=== PATIENT | male | born 1995 | race Hispanic/Latino ===

== ENCOUNTER 2020-05-08 17:43 | Inpatient (IN) | payer MEDICAID, OTHER ==
[~2020-05-08 17:43] MED LIST: Calcium Chloride 1 GM/10 ML Abboject SYRINGE ONE; Iopamidol-370 76% 500 ML 1 ML ONE; Magnesium Sulfate 2 GM in Sodium Chloride 0.9% 100 ML IVPB SCH; Rocuronium Bromide 10 MG/ML (10ML VIAL) ONE; Succinylcholine 200 MG/10 ml SYRINGE FS ONE
[2020-05-08] MEDS ORDERED: Fentanyl 100 MCG/2 ML VIAL ONE ×3 (17:58→20:36)
[2020-05-08 18:02] LABS: Hemoglobin 13.2 g/dL (14.0-18.0); Mean Corpuscular HGB CONC 32.8 g/dL (32.0-36.0); Mean Corpuscular Hemoglobin 32.3 pg (27.0-31.0); Mean Corpuscular Volume 98.7 fL (78.0-98.0); Mean Platelet Volume 8.2 fL (7.4-10.4); Platelet Count 279 thou/uL (130-400); RBC Distribution Width 12.4 % (11.5-14.5); Red Blood Cell (RBC) Count 4.09 mill/uL (4.70-6.10); White Blood Cell (WBC) Count 11.5 thou/uL (4.8-10.8)
[2020-05-08 18:06] LABS: INR-International Normal Ratio 1.1; Prothrombin Time 14.9 sec (12.0-14.7)
[2020-05-08 18:07] LABS: PTT 38.6 sec (22.9-36.1)
[2020-05-08 18:16] LABS: Band 2 % (5-11); Eosinophils 4 % (0-10); Lymphocytes 46 % (21-51); MDiff Complete? YES; Monocytes 2 % (0-10); Neutrophil 37 % (42-75); Platelet Morphology Comment Appears Adequate; RBC Morphology Normal; Reactive Lymphocytes 6 % (0-10)
[2020-05-08 18:18] LABS: ALT (SGPT) 414 U/L (8-55); AST (SGOT) 503 U/L (5-34); Alkaline Phosphatase 99 U/L (40-110); Anion Gap 20 mmol/L (10-20); BUN (Urea Nitrogen) 16 mg/dL (8.9-20.6); Bilirubin, Total 0.3 mg/dL (0.2-1.2); Calc. Creatinine Clearance 0 mL/min (70-130); Calcium 8.9 mg/dL (7.8-10.44); Carbon Dioxide 18 mmol/L (22-29); Chloride 106 mmol/L (98-107); Estimated GFR-MDRD 66; Globulin 3.2 g/dL (2.4-3.5); Glucose 188 mg/dL (70-105); Potassium 4.6 mmol/L (3.5-5.1); Protein, Total 7.2 g/dL (6.0-8.3); Sodium 139 mmol/L (136-145)
[2020-05-08] MEDS ORDERED: Midazolam HCl 2 mg/2 ml Vial ONE ×2 (18:30→20:36)
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
[2020-05-08] MEDS ORDERED: Tranexamic Acid 1,000 MG in Sodium Chloride 0.9% 250 ML 250 ML IVPB ONE (19:15)
[2020-05-08] MEDS ORDERED: Propofol 1,000 MG/100 ML VIAL IV ONE (19:16)
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
[2020-05-08] MEDS ORDERED: Neomycin-Polymyxin 1 ML AMP ONE ×2 (19:28→20:21)
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
[2020-05-08 19:39] LABS: Bilirubin Negative (Negative); Blood, Urine 3+ (Negative); Clarity Turbid (Clear); Glucose, Urine (Dipstick) Normal (Negative); Ketone, Urine Negative (Negative); Leukocyte Negative Leu/uL (Negative); Nitrite Negative (Negative); Protein, Urine (Dipstick) 50 mg/dL (Neg-Trace); RBC/HPF Greater than 50 HPF (0-3); Specific Gravity, Urine 1.035 (1.002-1.036); Squamous Epithelial None Seen HPF (0-3); Urobilinogen Normal mg/dL (Less than 2); pH, Urine 6.5 (5.0-9.0)
[2020-05-08 19:42] LABS: Bacteria/HPF None Seen HPF (None Seen)
[2020-05-08] MEDS ORDERED: Fosphenytoin Sodium 1,200 MG in Sodium Chloride 0.9% 50 ML IVPB ONE (19:45)
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
[2020-05-08] MEDS ORDERED: Ketamine 50 MG/ML (10ML VIAL) ONE (19:56)
[2020-05-08] MEDS ORDERED: Boostrix 0.5 ML (Tdap) VIAL ONE (19:59)
[2020-05-08 20:01] LABS: Amphetamine Not Detected (NotDetected); Barbiturates Screen Not Detected (NotDetected); Benzodiazepine Screen Not Detected (NotDetected); Cocaine Metabolite Screen Detected (NotDetected); Medtox Control Line Valid? VALID (VALID); Medtox Reader # READER 1; Methadone Not Detected (NotDetected); Methamphetamine Not Detected (NotDetected); Opiate Screen Not Detected (NotDetected); Oxycodone Screen Not Detected (NotDetected); Phencyclidine (PCP) Not Detected (NotDetected); THC/Cannabinoid Screen Detected (NotDetected); Tricyclic Screen Not Detected (NotDetected)
[2020-05-08] MEDS ORDERED: PHENYLEPHRINE-NS 100 MCG/ML 10 ML SYRINGE ONE (20:42)
[2020-05-08] MEDS ORDERED: Dextrose 5% in Water 1,000 ML IV PRN (20:43)
[2020-05-08] MEDS ORDERED: hydrALAZINE 20 MG/ML VIAL SLOW IVP PRN (20:43)
[2020-05-08] MEDS ORDERED: Dextrose 50% Abboject 50 ML SYRINGE SLOW IVP PRN (20:43)
[2020-05-08] MEDS ORDERED: Ondansetron PF 4 MG/2 ML Vial IVP PRN (20:43)
[2020-05-08] MEDS ORDERED: Ventilator Sedation Protocol 1 EACH FS ONE (20:49)
[2020-05-08] MEDS ORDERED: Fentanyl BOLUS 250 ML IVPB PRN (21:00)
[2020-05-08] MEDS ORDERED: DISCONTINUE PREVIOUS NARCOTIC PAIN MEDICATIONS AND BENZODIAZEPINES FS SCH (21:00)
[2020-05-08] MEDS ORDERED: Morphine 2 MG/ML VIAL SLOW IVP PRN (21:00)
[2020-05-08] MEDS ORDERED: Propofol BOLUS 1,000 MG/100 ML VIAL IV PRN (21:00)
[2020-05-08] MEDS ORDERED: Lorazepam 2 MG/ML VIAL SLOW IVP PRN (21:00)
[2020-05-08] MEDS: Sodium Chloride 0.9% 1,000 ML IV SCH (21:43)
[2020-05-08] MEDS: Famotidine/PF 20 mg/2ml Vial SLOW IVP SCH (21:43)
[2020-05-08 22:01] LABS: Actual Bicarbonate (HCO3a) 19.7 mEq/L (22-28); Base Excess (BEa) -5.5 mEq/L (-2.0 to +3.0); CO2 Tension 37.2 mmHg (35.0-45.0); Calcium, Ionized (arterial) 1.12 mmol/L (1.12-1.30); Carboxyhemoglobin (COHb) 0.3 gm% (0.0-3.0); Hemoglobin (Hb) 10.6 g/dL (14.0-18.0); O2 Tension (PaO2), arterial 109.7 mmHg (80.0-100.0); Potassium - ABG Lab 3.24 mmol/L (3.70-5.30); pH, Arterial 7.34 (7.35-7.45)
[2020-05-08 22:02] LABS: Puncture Site ART LINE
[2020-05-08 22:13] LABS: CK (CPK) 1048 U/L (30-200); Magnesium 1.8 mg/dL (1.6-2.6); Phosphorus 4.2 mg/dL (2.3-4.7)
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
[2020-05-08] MEDS ORDERED: Magnesium Sulfate 2 GM in Sodium Chloride 0.9% 100 ML IVPB SCH (23:31)
[2020-05-08] MEDS ORDERED: Potassium Chloride 40 MEQ in Sodium Chloride 0.9% 250 ML 250 ML IVPB SCH (23:45)
[2020-05-08] MEDS ORDERED: Potassium Chloride 40 MEQ, Magnesium Sulfate 2 GM in Sodium Chloride 0.9% 250 ML 250 ML IVPB SCH (23:45)
[2020-05-09] MEDS: Acetaminophen 325 MG/10.15 ML UDCUP PO SCH ×4 (00:13→18:15)
[2020-05-09] MEDS ORDERED: Sodium Bicarb 50 MEQ/50 ML Abboject 8.4% SYRINGE IVP SCH (00:30)
[2020-05-09] MEDS: Propofol 1,000 MG/100 ML VIAL IV PRN ×3 (03:17→21:35)
[2020-05-09 05:38] LABS: Anion Gap 15 mmol/L (10-20); BUN (Urea Nitrogen) 14 mg/dL (8.9-20.6); Calc. Creatinine Clearance 148 mL/min (70-130); Calcium 7.6 mg/dL (7.8-10.44); Carbon Dioxide 22 mmol/L (22-29); Chloride 116 mmol/L (98-107); Estimated GFR-MDRD Greater than 90; Glucose 165 mg/dL (70-105); Lactic Acid 5.1 mmol/L (0.5-2.2); Magnesium 2.6 mg/dL (1.6-2.6); Potassium 3.9 mmol/L (3.5-5.1); Sodium 149 mmol/L (136-145)
[2020-05-09] MEDS: Sodium Chloride 0.9% 1,000 ML IV SCH (05:43)
[2020-05-09 05:50] LABS: Band 38 % (5-11); Hemoglobin 9.4 g/dL (14.0-18.0); Lymphocytes 3 % (21-51); MDiff Complete? YES; Mean Corpuscular Hemoglobin 32.1 pg (27.0-31.0); Mean Corpuscular Volume 94.5 fL (78.0-98.0); Mean Platelet Volume 8.7 fL (7.4-10.4); Monocytes 10 % (0-10); Neutrophil 49 % (42-75); Platelet Count 157 thou/uL (130-400); Platelet Morphology Comment Appears Adequate; RBC Distribution Width 14.7 % (11.5-14.5); Red Blood Cell (RBC) Count 2.94 mill/uL (4.70-6.10); White Blood Cell (WBC) Count 15.9 thou/uL (4.8-10.8)
[2020-05-09 05:56] LABS: CK (CPK) 2421 U/L (30-200); Phosphorus 2.4 mg/dL (2.3-4.7)
[2020-05-09] MEDS ORDERED: Lactated Ringer's 1,000 ML IV SCH ×2 (06:00→21:30)
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
[2020-05-09] MEDS: fentaNYL Citrate/PF 2,000 MCG in Sodium Chloride 0.9% 60 ML IV SCH (06:06)
[2020-05-09] MEDS: Lactated Ringer's 1,000 ML IV SCH ×3 (06:18→21:16)
[2020-05-09] MEDS ORDERED: Potassium Phosphate 15 MMOL in Sodium Chloride 0.9% 250 ML 250 ML IVPB SCH (06:30)
[2020-05-09 06:48] LABS: Base Excess (BEa) -4.1 mEq/L (-2.0 to +3.0); CO2 Tension 32.3 mmHg (35.0-45.0); Calcium, Ionized (arterial) 1.11 mmol/L (1.12-1.30); Carboxyhemoglobin (COHb) 0.3 gm% (0.0-3.0); Hemoglobin (Hb) 8.9 g/dL (14.0-18.0); O2 Tension (PaO2), arterial 107.6 mmHg (80.0-100.0); Potassium - ABG Lab 3.57 mmol/L (3.70-5.30); pH, Arterial 7.41 (7.35-7.45)
[2020-05-09 06:49] LABS: Puncture Site LINE
[2020-05-09 06:50] LABS: ALV-art Gradient 101.575 mmHg (0-20)
[2020-05-09] MEDS ORDERED: Calcium Chloride 1 GM/10 ML Abboject SYRINGE IVP SCH (07:15)
[2020-05-09] MEDS ORDERED: Calcium Chloride 13.6 MEQ in Sodium Chloride 0.9% 100 ML IVPB SCH (07:45)
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
[2020-05-09] MEDS: Famotidine/PF 20 mg/2ml Vial SLOW IVP SCH ×2 (08:55→21:17)
[2020-05-09 10:18] LABS: Lactic Acid 3.8 mmol/L (0.5-2.2)
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
[2020-05-09] MEDS ORDERED: Rocuronium Bromide 10 MG/ML (10ML VIAL) ONE (11:23)
[2020-05-09] MEDS ORDERED: Ondansetron PF 4 MG/2 ML Vial ONE (11:23)
[2020-05-09] MEDS ORDERED: Vecuronium 10 MG VIAL ONE (11:23)
[2020-05-09] MEDS ORDERED: Calcium Chloride 1 GM/10 ML Abboject SYRINGE ONE (11:23)
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
[2020-05-09] MEDS ORDERED: Fentanyl 100 MCG/2 ML VIAL ONE (14:22)
[2020-05-09 19:59] LABS: Hemoglobin 9.9 g/dL (14.0-18.0)
[2020-05-09] MEDS ORDERED: CEFAZOLIN 2 GM in Premix Bag 1 BAG IVPB SCH (20:20)
--- NOTE | 2020-05-09 20:20 | RAD ---
EXAM: TWO VIEWS OF THE RIGHT FEMUR: 05/09/20 HISTORY: Femur fracture. FINDINGS/IMPRESSION: Multiple limited intraoperative fluoroscopic views of the right femur were submitted for interpretati on. There is an intramedullary jluis spanning the intertrochanteric fracture of the proximal femur. The re is a separate retrograde intramedullary jluis spanning the comminuted segmental fracture of the mid portion of the femur. There is still slight foreshortening of the fracture with fracture fragments in the soft tissues slightly displaced from the fracture. POS: EAA
--- NOTE | 2020-05-09 20:22 | RAD ---
TWO VIEWS OF THE RIGHT TIBIA/FIBULA: 05/09/20 COMPARISON: 05/08/20 HISTORY: Right tibia fracture status post ORIF. FINDINGS/IMPRESSION: Limited intraoperative fluoroscopic views of the right tibia/fibula were submitted for interpretation . The patient is status post antegrade intramedullary jluis fixation of the fracture of the mid portion of the tibia. No perihardware lucency is seen. The fracture is well aligned. POS: EAA
[2020-05-09 20:26] LABS: Lactic Acid 4.1 mmol/L (0.5-2.2)
[2020-05-09 20:30] LABS: Anion Gap 13 mmol/L (10-20); BUN (Urea Nitrogen) 12 mg/dL (8.9-20.6); CK (CPK) 3316 U/L (30-200); Calc. Creatinine Clearance 162 mL/min (70-130); Calcium 7.9 mg/dL (7.8-10.44); Carbon Dioxide 23 mmol/L (22-29); Chloride 120 mmol/L (98-107); Estimated GFR-MDRD Greater than 90; Glucose 193 mg/dL (70-105); Phosphorus 5.5 mg/dL (2.3-4.7); Potassium 3.8 mmol/L (3.5-5.1); Sodium 152 mmol/L (136-145)
[2020-05-09] MEDS ORDERED: Labetalol HCl 100 MG/20 ML VIAL SLOW IVP PRN (21:35)
[2020-05-09 22:48] LABS: Base Excess (BEa) -1.8 mEq/L (-2.0 to +3.0); CO2 Tension 38.9 mmHg (35.0-45.0); Carboxyhemoglobin (COHb) 0.3 gm% (0.0-3.0); Hemoglobin (Hb) 8.6 g/dL (14.0-18.0); O2 Tension (PaO2), arterial 144.7 mmHg (80.0-100.0); Potassium - ABG Lab 3.69 mmol/L (3.70-5.30); pH, Arterial 7.39 (7.35-7.45)
[2020-05-09 22:49] LABS: ALV-art Gradient 56.225 mmHg (0-20); Puncture Site A-LINE
[2020-05-09] MEDS ORDERED: Lactated Ringer's 500 ML IV SCH (23:15)
[2020-05-09] MEDS ORDERED: Calcium Gluc 4.6 MEQ/10 ML (100 MG/ML) SLOW IVP SCH (23:15)
[2020-05-10] MEDS: Acetaminophen 325 MG/10.15 ML UDCUP PO SCH ×4 (00:52→17:14)
--- NOTE | 2020-05-10 00:53 | PRG ---
DATE OF SERVICE: 05/09/2020 SUBJECTIVE: The patient was seen during evening rounds in the critical care unit. The patient is returning from the OR after having his right hip, right tibia and right femur repaired. The patient did receive 4 units of packed red blood cells and 1 unit of fresh frozen plasma in the OR. The patient's estimated blood loss was approximately 600 mL. The patient was also given a half amp of calcium in the OR. It was reported that he had normal vital signs and only had 1 push dose of Jay. The patient also received 1 L of LR while in the OR. The patient's urinary output briefly dropped postop. LR 1 L bolus was given. Postop labs revealed elevated lactate level of 4.1. Sodium elevated at 152 and CK increased to 3316. The patient's ionized calcium also was low at 1.10. The patient is on full ventilatory support. The patient is currently on fentanyl 150 mcg an hour and propofol 25 mcg/kg an hour. PHYSICAL EXAMINATION: VITAL SIGNS: Stable, afebrile. RESPIRATORY: Bilateral breath sounds clear. CARDIAC: Regular rate, tachycardic. ABDOMEN: Soft, nondistended. EXTREMITIES: No focal deficits, distal pulses 2+ in all extremities. PLAN: Continue to resuscitate. We will give another LR bolus 500 mL and monitor urinary output with a goal of 40 mL an hour. We will replace calcium. Repeat labs in the morning. We will also do a free water flush for hypernatremia. Ensure the patient's systolic blood pressure is above 100, but less than 160 and a MAP goal of 70. End-tidal CO2 goal of 35-40. Job ID: [id number]
[2020-05-10] MEDS: fentaNYL Citrate/PF 2,000 MCG in Sodium Chloride 0.9% 60 ML IV SCH ×2 (01:11→13:33)
[2020-05-10] MEDS: Lactated Ringer's 1,000 ML IV SCH ×3 (03:12→15:18)
[2020-05-10 04:38] LABS: INR-International Normal Ratio 1.4; Prothrombin Time 17.1 sec (12.0-14.7)
[2020-05-10 04:39] LABS: PTT 35.2 sec (22.9-36.1)
[2020-05-10 04:40] LABS: Lactic Acid 3.4 mmol/L (0.5-2.2)
[2020-05-10 04:46] LABS: Anion Gap 13 mmol/L (10-20); BUN (Urea Nitrogen) 13 mg/dL (8.9-20.6); CK (CPK) 3211 U/L (30-200); Calc. Creatinine Clearance 162 mL/min (70-130); Calcium 7.9 mg/dL (7.8-10.44); Carbon Dioxide 22 mmol/L (22-29); Chloride 117 mmol/L (98-107); Estimated GFR-MDRD Greater than 90; Glucose 159 mg/dL (70-105); Magnesium 1.9 mg/dL (1.6-2.6); Phosphorus 2.4 mg/dL (2.3-4.7); Potassium 3.5 mmol/L (3.5-5.1); Sodium 148 mmol/L (136-145)
[2020-05-10] MEDS: Propofol 1,000 MG/100 ML VIAL IV PRN ×2 (05:11→18:35)
[2020-05-10 07:09] LABS: #Lymphocytes 1.7 thou/uL (1.20-3.40); #Monocytes 1.3 thou/uL (0.11-0.59); #Neutrophils 9.2 thou/uL (1.40-6.50); %Basophils 0.2 % (0.0-1.0); %Lymphocytes 14.2 % (21.0-51.0); %Monocytes 10.2 % (0.0-10.0); %Neutrophils 75.3 % (42.0-75.0); Anisocytosis SLIGHT = 6-15 cells (100X) (0-5/hpf); Hemoglobin 7.9 g/dL (14.0-18.0); MDiff Complete? YES; Mean Corpuscular HGB CONC 33.8 g/dL (32.0-36.0); Mean Corpuscular Hemoglobin 30.3 pg (27.0-31.0); Mean Corpuscular Volume 89.6 fL (78.0-98.0); Mean Platelet Volume 9.2 fL (7.4-10.4); Platelet Count 82 thou/uL (130-400); Platelet Morphology Comment Appears Decreased; RBC Distribution Width 15.3 % (11.5-14.5); Red Blood Cell (RBC) Count 2.59 mill/uL (4.70-6.10); White Blood Cell (WBC) Count 12.2 thou/uL (4.8-10.8)
[2020-05-10] MEDS ORDERED: Potassium Phosphate 15 MMOL in Sodium Chloride 0.9% 250 ML 250 ML IVPB SCH (08:00)
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
[2020-05-10 08:39] LABS: Base Excess (BEa) 0.8 mEq/L (-2.0 to +3.0); CO2 Tension 37.9 mmHg (35.0-45.0); Calcium, Ionized (arterial) 1.09 mmol/L (1.12-1.30); Carboxyhemoglobin (COHb) 0.3 gm% (0.0-3.0); Hemoglobin (Hb) 7.5 g/dL (14.0-18.0); O2 Tension (PaO2), arterial 90.3 mmHg (80.0-100.0); Potassium - ABG Lab 3.43 mmol/L (3.70-5.30); pH, Arterial 7.44 (7.35-7.45)
[2020-05-10 08:40] LABS: Puncture Site ALINE
[2020-05-10 08:41] LABS: ALV-art Gradient 111.875 mmHg (0-20)
[2020-05-10] MEDS ORDERED: Calcium Chloride 13.6 MEQ in Sodium Chloride 0.9% 100 ML IVPB SCH (08:45)
[2020-05-10] MEDS: Famotidine/PF 20 mg/2ml Vial SLOW IVP SCH ×2 (08:46→20:46)
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
--- NOTE | 2020-05-10 11:24 | PRG ---
DATE OF SERVICE: 05/10/2020 Mr. Anna Ferro this morning with the sedation turned off, attempts to open his eyes, he raises up off the bed very briskly and with excellent strength in bilateral upper and left lower extremities. He does not follow commands, but is quite purposeful. I have removed his cervical collar given his negative cervical, thoracic, and lumbar imaging. At this point, we will continue to follow along. There is no need for an ICP monitor placement given how well the patient is doing from a neurologic standpoint. This is a 25-minute subsequent visit note and 25 minutes were spent in reviewing the imaging record, evaluation, examination of the patient, formulation of plan, greater than 50% time was spent in counseling. Job ID: [id number]
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
[2020-05-10] MEDS ORDERED: Iopamidol 370 76% 50 ML VIAL FS ONE (14:52)
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
[2020-05-11] MEDS: Lactated Ringer's 1,000 ML IV SCH ×5 (00:11→20:21)
[2020-05-11] MEDS: Propofol 1,000 MG/100 ML VIAL IV PRN ×2 (00:12→18:18)
[2020-05-11] MEDS: Acetaminophen 325 MG/10.15 ML UDCUP PO SCH ×4 (00:12→14:43)
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
[2020-05-11 03:20] LABS: #Eosinphils 0.1 thou/uL (0.0-0.7); #Lymphocytes 1.4 thou/uL (1.20-3.40); #Monocytes 0.6 thou/uL (0.11-0.59); #Neutrophils 5.1 thou/uL (1.40-6.50); %Basophils 0.4 % (0.0-1.0); %Lymphocytes 19.4 % (21.0-51.0); %Monocytes 8.7 % (0.0-10.0); %Neutrophils 70.5 % (42.0-75.0); Hemoglobin 6.4 g/dL (14.0-18.0); Mean Corpuscular HGB CONC 34.7 g/dL (32.0-36.0); Mean Corpuscular Hemoglobin 31.3 pg (27.0-31.0); Mean Corpuscular Volume 90.3 fL (78.0-98.0); Mean Platelet Volume 9.3 fL (7.4-10.4); Platelet Count 74 thou/uL (130-400); RBC Distribution Width 15.2 % (11.5-14.5); Red Blood Cell (RBC) Count 2.04 mill/uL (4.70-6.10); White Blood Cell (WBC) Count 7.2 thou/uL (4.8-10.8)
[2020-05-11 03:39] LABS: Lactic Acid 1.9 mmol/L (0.5-2.2)
[2020-05-11 03:56] LABS: Anion Gap 9 mmol/L (10-20); BUN (Urea Nitrogen) 13 mg/dL (8.9-20.6); CK (CPK) 3704 U/L (30-200); Calc. Creatinine Clearance 187 mL/min (70-130); Calcium 7.6 mg/dL (7.8-10.44); Carbon Dioxide 26 mmol/L (22-29); Chloride 116 mmol/L (98-107); Estimated GFR-MDRD Greater than 90; Glucose 159 mg/dL (70-105); Phosphorus 1.7 mg/dL (2.3-4.7); Potassium 2.9 mmol/L (3.5-5.1); Sodium 148 mmol/L (136-145)
[2020-05-11] MEDS ORDERED: Potassium Phosphate 30 MMOL in Sodium Chloride 0.9% 250 ML 250 ML IVPB SCH ×2 (05:00→16:00)
[2020-05-11 07:40] LABS: Actual Bicarbonate (HCO3a) 26.5 mEq/L (22-28); Base Excess (BEa) 2.6 mEq/L (-2.0 to +3.0); CO2 Tension 37.3 mmHg (35.0-45.0); Carboxyhemoglobin (COHb) 0.3 gm% (0.0-3.0); Hemoglobin (Hb) 6.1 g/dL (14.0-18.0); O2 Tension (PaO2), arterial 149.3 mmHg (80.0-100.0); Potassium - ABG Lab 3.31 mmol/L (3.70-5.30); pH, Arterial 7.47 (7.35-7.45)
[2020-05-11 07:41] LABS: ALV-art Gradient 53.625 mmHg (0-20); Puncture Site RB
[2020-05-11] MEDS ORDERED: Calcium Chloride 1 GM/10 ML Abboject SYRINGE IVP SCH (08:15)
[2020-05-11] MEDS: Famotidine/PF 20 mg/2ml Vial SLOW IVP SCH ×2 (08:34→20:22)
[2020-05-11] MEDS: Polyethylene Glycol 3350 17 GM Packet PO SCH (08:37)
[2020-05-11] MEDS: Senokot S 8.6-50 MG TAB PO SCH ×2 (08:37→20:22)
[2020-05-11] MEDS ORDERED: AFRIN NASAL MIST 15 ML BOT NS PRN (10:09)
[2020-05-11] MEDS ORDERED: Haloperidol Lactate 5 MG/ML VIAL SLOW IVP SCH ×2 (10:15)
[2020-05-11] MEDS ORDERED: Propofol 1,000 MG/100 ML VIAL IV ONE (10:27)
--- NOTE | 2020-05-11 10:31 | PRG ---
DATE OF SERVICE: 05/11/2020 I saw Mr. Román Ferro on rounds earlier this morning. Nursing did not report any significant events overnight. Among the electronically recorded vital signs, I see a maximum temperature of 99.6 degrees. Blood pressures have ranged in the 100s to 110s. Mr. Anna Ferro has a wrapping on his right leg. He is quite purposeful in his reaction to stimuli and localizes briskly. His sodium this morning is 148. Mr. Anna Ferro is stable on neurological examination. We will continue to follow him. Anticipated extubation will be sometime today, according to the notes that I have reviewed. Unlikely, he will need neurosurgical intervention. Job ID: [id number] [facility]
--- NOTE | 2020-05-11 10:34 | RAD ---
EXAM: XR Chest 1 View Portable PROVIDED CLINICAL HISTORY: Intubated. COMPARISON: 05/10/2021 FINDINGS: Endotracheal tube and nasogastric tube remain in place. Cardiac silhouette is magnified by projection . There is mild pulmonary vascular congestion on this exam compared to prior study. No consolidation or pleural fluid is identified. There is partial visualization of an IVC filter overlyi ng the medial aspect quadrant. No other interval change IMPRESSION: 1. Endotracheal and nasogastric tubes stable in position. 2. Mild pulmonary vascular congestion.
[2020-05-11] MEDS ORDERED: Lidocaine 1% w/Epinephrine 1:100K 20 ML VIAL ONE ×2 (10:41)
[2020-05-11] MEDS ORDERED: Fentanyl 100 MCG/2 ML VIAL ONE ×2 (10:47→10:54)
[2020-05-11] MEDS ORDERED: Acetaminophen/Codeine 30-300mg Tablet PO SCH (11:00)
[2020-05-11] MEDS ORDERED: Fentanyl BOLUS 250 ML IVPB PRN (12:15)
[2020-05-11] MEDS ORDERED: DISCONTINUE PREVIOUS NARCOTIC PAIN MEDICATIONS AND BENZODIAZEPINES FS SCH (12:15)
[2020-05-11] MEDS ORDERED: Lorazepam 2 MG/ML VIAL SLOW IVP PRN (12:15)
[2020-05-11] MEDS ORDERED: Morphine 2 MG/ML VIAL SLOW IVP PRN (12:15)
[2020-05-11] MEDS ORDERED: Propofol BOLUS 1,000 MG/100 ML VIAL IV PRN (12:15)
--- NOTE | 2020-05-11 12:19 | RAD ---
XR Abdomen 1 View/KUB History: Dobbhoff placement Comparison: None. Findings: Weighted feeding tube tip in gastric body. IVC filter tip projects over the mid L1 vertebra l body. Mild gaseous distention of large and small bowel. Impression: Weighted feeding tube tip at the gastric body.
[2020-05-11] MEDS: fentaNYL Citrate/PF 2,000 MCG in Sodium Chloride 0.9% 60 ML IV SCH (12:26)
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
[2020-05-11 14:25] LABS: Hemoglobin 7.2 g/dL (14.0-18.0); Mean Corpuscular HGB CONC 33.9 g/dL (32.0-36.0); Mean Corpuscular Hemoglobin 30.5 pg (27.0-31.0); Mean Corpuscular Volume 90.1 fL (78.0-98.0); Platelet Count 74 thou/uL (130-400); RBC Distribution Width 15.6 % (11.5-14.5); Red Blood Cell (RBC) Count 2.37 mill/uL (4.70-6.10); White Blood Cell (WBC) Count 6.8 thou/uL (4.8-10.8)
[2020-05-11 14:43] LABS: Anion Gap 11 mmol/L (10-20); BUN (Urea Nitrogen) 10 mg/dL (8.9-20.6); Calc. Creatinine Clearance 218 mL/min (70-130); Carbon Dioxide 25 mmol/L (22-29); Chloride 113 mmol/L (98-107); Estimated GFR-MDRD Greater than 90; Glucose 128 mg/dL (70-105); Magnesium 1.9 mg/dL (1.6-2.6); Phosphorus 2.9 mg/dL (2.3-4.7); Potassium 3.2 mmol/L (3.5-5.1); Sodium 146 mmol/L (136-145)
[2020-05-11] MEDS: carBAMazepine 200 MG TAB PO SCH ×2 (14:43→20:22)
[2020-05-11 14:48] LABS: Anisocytosis SLIGHT = 6-15 cells (100X) (0-5/hpf); Band 54 % (5-11); Lymphocytes 19 % (21-51); MDiff Complete? YES; Metamyelocyte 1 % (0-0); Monocytes 5 % (0-10); Myelocyte 1 % (0-0); Neutrophil 19 % (42-75); Nucleated RBC 1 % (0); Platelet Morphology Comment Appears Decreased; Polychromasia MODERATE = 3-4 cells (100X) (0-2/hpf); Reactive Lymphocytes 1 % (0-10)
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
[2020-05-11] MEDS ORDERED: Magnesium 2 GM/50 ML 2 GM in Premix Bag 1 BAG IVPB SCH (15:45)
[2020-05-11] MEDS ORDERED: carBAMazepine 200 MG TAB PO SCH (17:00)
[2020-05-11] MEDS: Acetaminophen 650 MG/20.3 ML UDCUP PO SCH (18:19)
[2020-05-11 22:10] LABS: Hemoglobin 6.7 g/dL (14.0-18.0)
[2020-05-12] MEDS: Lactated Ringer's 1,000 ML IV SCH ×4 (00:12→17:11)
[2020-05-12] MEDS: Acetaminophen 650 MG/20.3 ML UDCUP PO SCH ×4 (00:17→17:11)
[2020-05-12] MEDS: Propofol 1,000 MG/100 ML VIAL IV PRN ×2 (05:33→17:11)
[2020-05-12] MEDS: fentaNYL Citrate/PF 2,000 MCG in Sodium Chloride 0.9% 60 ML IV SCH (05:38)
[2020-05-12 05:52] LABS: Hemoglobin 7.9 g/dL (14.0-18.0); Mean Corpuscular HGB CONC 34.4 g/dL (32.0-36.0); Mean Corpuscular Hemoglobin 30.5 pg (27.0-31.0); Mean Corpuscular Volume 88.7 fL (78.0-98.0); Mean Platelet Volume 9.1 fL (7.4-10.4); Platelet Count 87 thou/uL (130-400); RBC Distribution Width 15.3 % (11.5-14.5); Red Blood Cell (RBC) Count 2.58 mill/uL (4.70-6.10); White Blood Cell (WBC) Count 8.8 thou/uL (4.8-10.8)
[2020-05-12 06:19] LABS: CK (CPK) 4307 U/L (30-200)
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
[2020-05-12 06:26] LABS: Anion Gap 10 mmol/L (10-20); BUN (Urea Nitrogen) 9 mg/dL (8.9-20.6); Calc. Creatinine Clearance 204 mL/min (70-130); Calcium 7.8 mg/dL (7.8-10.44); Carbon Dioxide 26 mmol/L (22-29); Chloride 113 mmol/L (98-107); Estimated GFR-MDRD Greater than 90; Glucose 162 mg/dL (70-105); Magnesium 2.2 mg/dL (1.6-2.6); Phosphorus 3.6 mg/dL (2.3-4.7); Potassium 3.3 mmol/L (3.5-5.1); Sodium 146 mmol/L (136-145)
[2020-05-12 07:35] LABS: Base Excess (BEa) -2.1 mEq/L (-2.0 to +3.0); CO2 Tension 40.4 mmHg (35.0-45.0); Calcium, Ionized (arterial) 1.11 mmol/L (1.12-1.30); Carboxyhemoglobin (COHb) 0.1 gm% (0.0-3.0); Hemoglobin (Hb) 10.4 g/dL (14.0-18.0); Potassium - ABG Lab 3.17 mmol/L (3.70-5.30); pH, Arterial 7.37 (7.35-7.45)
[2020-05-12 07:41] LABS: O2 Tension (PaO2), arterial 57.9 mmHg (80.0-100.0); Puncture Site RR
[2020-05-12] MEDS ORDERED: Lactated Ringer's 1,000 ML IV SCH (07:56)
[2020-05-12] MEDS: Senokot S 8.6-50 MG TAB PO SCH ×2 (08:00→20:43)
[2020-05-12] MEDS: carBAMazepine 200 MG TAB PO SCH ×3 (08:00→20:43)
[2020-05-12] MEDS: Famotidine/PF 20 mg/2ml Vial SLOW IVP SCH ×2 (08:00→20:43)
[2020-05-12] MEDS ORDERED: Potassium Phosphate 30 MMOL in Sodium Chloride 0.9% 250 ML 250 ML IVPB SCH (08:00)
[2020-05-12] MEDS: Polyethylene Glycol 3350 17 GM Packet PO SCH (08:00)
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
--- NOTE | 2020-05-12 08:56 | RAD ---
EXAM: XR Chest 1 View Portable PROVIDED CLINICAL HISTORY: Tracheostomy device placed. COMPARISON: 05/11/2020 FINDINGS: Endotracheal tube has been removed, and tracheostomy device is now noted in place. Nasogastric tube h as been removed in the interim with interval placement of a Dobbhoff feeding tube. Although the Dobbhoff feeding tube is not visualized, most proximal portion of the Dobbhoff feeding tube overlies expected location of the body of the stomach. Cardiac silhouette and pulmonary vasculature are within normal limits. There is prominence of the central pulmonary vasculature. There is accentuation the right hilar structures which is likely due to central pulmonary vascular prominence and accentuation secondary to patient rotation. Atelectasis is present in the right midlung zone. No othe r interval change. IMPRESSION: 1. Interval placement of tracheostomy device. 2. Interval placement of Dobbhoff feeding tube. Tip is not imaged, but the most proximal portion of D obbhoff feeding tube overlies the expected location the body of the stomach. 3. Prominence of the central pulmonary vasculature.
--- NOTE | 2020-05-12 09:33 | PRG ---
DATE OF SERVICE: 05/12/2020 I saw Mr. Anna Ferro in his ICU room this morning. Nurses do not report any events overnight. Temperatures have reached as high as 100.1 degrees Fahrenheit. His neurological examination is improved for me. In spite of sedation running, I can get him to squeeze his hands. He did not follow commands in the lower extremities, but he does move them. Today, sodium is 146. The plan today, according the nursing staff, is for a trial of trach collar. Off sedation, he is quite agitated and begins to sit up and tried to extricate himself from the restraints and move around. It is going to be a challenge to keep him safe while removing ventilatory support and sedation. Thankfully, I think his neurological function is stable to improving (15 minutes). Job ID: [id number]
[2020-05-12] MEDS ORDERED: carBAMazepine 100 mg Chewable Tablet PO SCH (11:30)
[2020-05-12 11:43] LABS: SARS-CoV-2 MS2 Positive; SARS-CoV-2 N Gene Negative; SARS-CoV-2 S Gene Negative; SARS-CoV-2 by NAA Not Detected (NotDetected); SARS-CoV-2 orf1ab Negative
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
--- NOTE | 2020-05-12 23:39 | PRG ---
DATE OF SERVICE: 05/12/2020 SUBJECTIVE: The patient was seen during evening rounds in the critical care unit. The patient is currently sedated and on full mechanical ventilatory support. The patient did receive 1 unit of packed red blood cells earlier this morning. OBJECTIVE: VITAL SIGNS: Stable, afebrile. Urinary output is adequate for patient's age and weight and above 1 mL/kg per hour. PLAN: Continue supportive care and full ventilatory support. Continue maintenance IV fluids. Continue to monitor urinary output. Repeat labs in the morning. Job ID: [id number]
[2020-05-13] MEDS: Lactated Ringer's 1,000 ML IV SCH ×3 (00:38→13:32)
[2020-05-13] MEDS: Acetaminophen 650 MG/20.3 ML UDCUP PO SCH ×4 (00:38→17:59)
[2020-05-13] MEDS: Propofol 1,000 MG/100 ML VIAL IV PRN (01:13)
[2020-05-13] MEDS: fentaNYL Citrate/PF 2,000 MCG in Sodium Chloride 0.9% 60 ML IV SCH (04:50)
[2020-05-13 05:52] LABS: #Eosinphils 0.1 thou/uL (0.0-0.7); #Lymphocytes 1.3 thou/uL (1.20-3.40); %Basophils 0.1 % (0.0-1.0); %Eosinophils 0.9 % (0.0-10.0); %Lymphocytes 11.7 % (21.0-51.0); %Monocytes 8.9 % (0.0-10.0); %Neutrophils 78.4 % (42.0-75.0); Hemoglobin 8.5 g/dL (14.0-18.0); Mean Corpuscular HGB CONC 34.4 g/dL (32.0-36.0); Mean Corpuscular Hemoglobin 31.4 pg (27.0-31.0); Mean Corpuscular Volume 91.1 fL (78.0-98.0); Mean Platelet Volume 8.4 fL (7.4-10.4); Platelet Count 123 thou/uL (130-400); RBC Distribution Width 15.5 % (11.5-14.5); Red Blood Cell (RBC) Count 2.71 mill/uL (4.70-6.10); White Blood Cell (WBC) Count 11.5 thou/uL (4.8-10.8)
[2020-05-13 06:06] LABS: Anion Gap 14 mmol/L (10-20); BUN (Urea Nitrogen) 9 mg/dL (8.9-20.6); Calc. Creatinine Clearance 238 mL/min (70-130); Calcium 7.9 mg/dL (7.8-10.44); Carbon Dioxide 24 mmol/L (22-29); Chloride 108 mmol/L (98-107); Estimated GFR-MDRD Greater than 90; Glucose 158 mg/dL (70-105); Magnesium 2.1 mg/dL (1.6-2.6); Phosphorus 3.2 mg/dL (2.3-4.7); Potassium 3.5 mmol/L (3.5-5.1); Sodium 142 mmol/L (136-145)
[2020-05-13 06:18] LABS: CK (CPK) 4752 U/L (30-200)
[2020-05-13] MEDS ORDERED: Potassium Phosphate 15 MMOL in Sodium Chloride 0.9% 250 ML 250 ML IVPB SCH (07:30)
[2020-05-13] MEDS: carBAMazepine 200 MG TAB PO SCH ×3 (08:24→18:05)
[2020-05-13] MEDS: Senokot S 8.6-50 MG TAB PO SCH ×2 (08:24→21:56)
[2020-05-13] MEDS: Famotidine/PF 20 mg/2ml Vial SLOW IVP SCH ×2 (08:24→21:56)
[2020-05-13] MEDS: Polyethylene Glycol 3350 17 GM Packet PO SCH (08:25)
[2020-05-13] MEDS ORDERED: clonazePAM 1 MG TAB PO SCH (09:30)
[2020-05-13] MEDS: Acetaminophen/Codeine 30-300mg Tablet PO SCH ×2 (12:27→17:59)
[2020-05-13] MEDS ORDERED: Oxymetazoline HCl 0.05% (30 ML BOT) NS PRN (13:30)
[2020-05-13] MEDS: clonazePAM 1 MG TAB PO SCH ×2 (15:46→21:56)
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
[2020-05-14] MEDS: Acetaminophen 650 MG/20.3 ML UDCUP PO SCH ×5 (00:35→23:43)
[2020-05-14] MEDS: carBAMazepine 200 MG TAB PO SCH ×5 (00:36→23:41)
[2020-05-14] MEDS: Acetaminophen/Codeine 30-300mg Tablet PO SCH ×5 (00:36→23:41)
[2020-05-14] MEDS: Lactated Ringer's 1,000 ML IV SCH ×2 (00:38→09:18)
--- NOTE | 2020-05-14 01:10 | PRG ---
DATE OF SERVICE: 05/13/2020 SUBJECTIVE: The patient remains on the critical care unit. The patient has been on trach collar since noon today and tolerating well. The patient continues to have Precedex for pain and sedation, currently at 1 mcg/kg an hour. The patient also has a fentanyl drip at 100 mcg an hour. The patient is currently restrained with soft restraints and mittens as the patient gets agitated and pulls at his trach. The patient was pancultured today as he had a temperature of 101. Urinary output is adequate for patient's age and weight. Tube feeds with high residual. OBJECTIVE: Vital signs are stable. RESP: Even and non labored, clear breath sounds. ABDOMEN: Mildly distended, soft, no peritoneal signs. EXTREMITIES: Moves all extremities. NEURO: GCS E 4, V 1T, M 5. PLAN: Continue to monitor urinary output and serum CPK. Continue trach collar as tolerated. Continue to wean sedatives as tolerated. Continue PT and OT. Speech to evaluate for cognition and swallow. Hold tube feeds for 2 hours due to high residuals. Job ID: [id number] [facility]
[2020-05-14] MEDS: fentaNYL Citrate/PF 2,000 MCG in Sodium Chloride 0.9% 60 ML IV SCH ×2 (01:31→22:07)
[2020-05-14 04:11] LABS: Anion Gap 15 mmol/L (10-20); BUN (Urea Nitrogen) 8 mg/dL (8.9-20.6); Calc. Creatinine Clearance 274 mL/min (70-130); Carbon Dioxide 22 mmol/L (22-29); Chloride 100 mmol/L (98-107); Estimated GFR-MDRD Greater than 90; Glucose 137 mg/dL (70-105); Magnesium 1.9 mg/dL (1.6-2.6); Phosphorus 2.6 mg/dL (2.3-4.7); Potassium 3.5 mmol/L (3.5-5.1); Sodium 133 mmol/L (136-145)
[2020-05-14 04:48] LABS: Band 39 % (5-11); Eosinophils 1 % (0-10); Hemoglobin 9.6 g/dL (14.0-18.0); Lymphocytes 9 % (21-51); MDiff Complete? YES; Mean Corpuscular HGB CONC 32.6 g/dL (32.0-36.0); Mean Corpuscular Hemoglobin 29.8 pg (27.0-31.0); Mean Corpuscular Volume 91.4 fL (78.0-98.0); Mean Platelet Volume 8.4 fL (7.4-10.4); Monocytes 8 % (0-10); Myelocyte 1 % (0-0); Neutrophil 42 % (42-75); Platelet Count 163 thou/uL (130-400); RBC Distribution Width 15.1 % (11.5-14.5); Red Blood Cell (RBC) Count 3.21 mill/uL (4.70-6.10); White Blood Cell (WBC) Count 17.8 thou/uL (4.8-10.8)
--- NOTE | 2020-05-14 07:54 | RAD ---
PORTABLE CHEST: Date: 05/14/2020 HISTORY: Intubation. COMPARISON: 05/12/2020 exam. FINDINGS: Tracheostomy tube and Dobbhoff feeding tube are in satisfactory position. Heart size is enlarged. Pul monary vessels are engorged. Increased parahilar lung markings are slightly more prominent than on th e previous exam. IMPRESSION: 1. Cardiomegaly with some increased pulmonary vascular engorgement. 2. Tracheostomy tube and Dobbhoff feeding tube unchanged in position. POS: OFF
[2020-05-14] MEDS: Famotidine/PF 20 mg/2ml Vial SLOW IVP SCH ×2 (08:56→20:20)
[2020-05-14] MEDS: Polyethylene Glycol 3350 17 GM Packet PO SCH (08:56)
[2020-05-14] MEDS: Senokot S 8.6-50 MG TAB PO SCH ×2 (08:57→20:21)
[2020-05-14] MEDS: Bisacodyl 10 MG SUPP PR SCH (08:57)
[2020-05-14] MEDS: clonazePAM 1 MG TAB PO SCH ×3 (08:58→20:20)
[2020-05-14] MEDS: Sodium Bicarbonate 150 MEQ in Dextrose 5% in Water 850 ML IV SCH ×2 (09:17→20:27)
[2020-05-14] MEDS ORDERED: Propofol 1,000 MG/100 ML VIAL IV ONE (11:03)
[2020-05-14] MEDS ORDERED: Propofol BOLUS 1,000 MG/100 ML VIAL IV PRN (11:30)
[2020-05-14] MEDS ORDERED: Propofol 1,000 MG/100 ML VIAL IV PRN (11:30)
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
--- NOTE | 2020-05-14 16:32 | PRG ---
DATE OF SERVICE: 05/14/2020 SUBJECTIVE: The patient is 6 days into his hospital stay and remains in the critical care unit. He is tolerating his trach collar. He remains on Precedex and fentanyl. He was detected to have a fever of 101.5 degrees Fahrenheit yesterday evening, but has been afebrile since. Preliminary urine and blood cultures have yielded no growth; however, preliminary sputum culture has returned Staphylococcus aureus. He will be started on appropriate antibiotics. His white blood cell count this morning was 17.8. The patient's pupils are 2 mm and sluggishly reactive. He moves his extremities to tactile stimulus. He remains sedated. Plan: Initiate appropriate antibiotics for preliminary sputum cultures, Staphylococcus aureus. The patient will remain on fosphenytoin 300 mg nightly. We will continue to monitor his neurologic status. Please call for any neurologic changes or other concerns. This was a 15 minute subsequent visit in which greater than 50% of the time was spent in review of records, review of imaging, evaluation, examination, and formulation of a plan. The remaining time was spent in counseling and coordination of care. Job ID: [id number] [facility]
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
[2020-05-14] MEDS: Piperacillin/Tazobactam 3.375 GM in Sodium Chloride 0.9% 100 ML IVPB SCH ×2 (17:43→23:43)
[2020-05-14] MEDS: Vancomycin 1.5 GRAM/300 ML BAG 1.5 GM in Premix Bag 1 BAG IVPB SCH (17:43)
[2020-05-15] MEDS: Vancomycin 1.5 GRAM/300 ML BAG 1.5 GM in Premix Bag 1 BAG IVPB SCH ×2 (02:55→12:51)
[2020-05-15 04:24] LABS: Anion Gap 14 mmol/L (10-20); BUN (Urea Nitrogen) 11 mg/dL (8.9-20.6); CK (CPK) 2735 U/L (30-200); Calc. Creatinine Clearance 224 mL/min (70-130); Carbon Dioxide 25 mmol/L (22-29); Chloride 95 mmol/L (98-107); Estimated GFR-MDRD Greater than 90; Glucose 118 mg/dL (70-105); Phosphorus 2.1 mg/dL (2.3-4.7); Potassium 3.7 mmol/L (3.5-5.1); Sodium 130 mmol/L (136-145)
[2020-05-15 04:32] LABS: Band 24 % (5-11); Eosinophils 4 % (0-10); Hemoglobin 9.5 g/dL (14.0-18.0); Lymphocytes 16 % (21-51); MDiff Complete? YES; Mean Corpuscular HGB CONC 33.7 g/dL (32.0-36.0); Mean Corpuscular Hemoglobin 30.7 pg (27.0-31.0); Mean Corpuscular Volume 90.9 fL (78.0-98.0); Mean Platelet Volume 8.8 fL (7.4-10.4); Metamyelocyte 1 % (0-0); Monocytes 7 % (0-10); Neutrophil 48 % (42-75); Platelet Count 197 thou/uL (130-400); RBC Distribution Width 14.7 % (11.5-14.5); White Blood Cell (WBC) Count 14.3 thou/uL (4.8-10.8)
[2020-05-15] MEDS: Acetaminophen 650 MG/20.3 ML UDCUP PO SCH ×3 (05:03→16:56)
[2020-05-15] MEDS: Acetaminophen/Codeine 30-300mg Tablet PO SCH ×3 (05:04→16:58)
[2020-05-15] MEDS: carBAMazepine 200 MG TAB PO SCH ×3 (05:05→17:00)
[2020-05-15] MEDS: Piperacillin/Tazobactam 3.375 GM in Sodium Chloride 0.9% 100 ML IVPB SCH ×3 (05:05→16:55)
--- NOTE | 2020-05-15 08:01 | RAD ---
EXAM: XR Chest 1 View Portable PROVIDED CLINICAL HISTORY: Respiratory failure. Patient is post tracheostomy device placement. COMPARISON: 05/14/2020 FINDINGS: Tracheostomy device remains in place. There has been interval removal of the Dobbhoff feeding tube wi th interval placement of a nasogastric tube. The most proximal sidehole of the nasogastric tube probably overlies region of the GE junction and should be mildly advanced. Cardiac silhouette is magn ified by projection but does appear mildly enlarged. There is increased density seen in the retrocardiac region left lung base as well as suggestion of left pleural effusion. Increased density at the left lung base could be related to associated atelectasis or pneumonia. Minimal hazy density is seen at the medial right lung base which may represent volume loss or pneumonitis. No other interv al change. IMPRESSION: 1. Increased density left lung base with question of consolidation in the retrocardiac region left jerzy ng base. This could be related to atelectasis versus pneumonia. Follow-up to resolution is recommended. 2. Small left pleural effusion. 3. Minimal hazy density medial right lung base which may represent atelectasis versus pneumonitis. Ri ght hemidiaphragm is mildly elevated 4. Nasogastric tube placed in the interim with the most proximal sidehole overlying expected location of the GE junction, and nasogastric tube should be mildly advanced.
[2020-05-15] MEDS: clonazePAM 1 MG TAB PO SCH ×3 (08:07→21:07)
[2020-05-15] MEDS: Senokot S 8.6-50 MG TAB PO SCH ×2 (08:07→21:07)
[2020-05-15] MEDS: Famotidine/PF 20 mg/2ml Vial SLOW IVP SCH ×2 (08:08→21:08)
[2020-05-15] MEDS ORDERED: Potassium Phosphate 30 MMOL in Sodium Chloride 0.9% 250 ML 250 ML IVPB SCH (09:15)
[2020-05-15] MEDS ORDERED: Sodium Chloride 308 MEQ in Sterile Water Injection 923 ML IV SCH (09:15)
[2020-05-15] MEDS ORDERED: HYDROcodone/Acetaminophen 7.5/325 mg Tablet PO PRN ×2 (09:53)
--- NOTE | 2020-05-15 10:18 | RAD ---
Abdomen one view HISTORY: Tube placement. FINDINGS: Gas and liquid contrast distended colon. Small bowel gas pattern is nonspecific. Distal end of the nasogastric tube is coiled over the stomach at the left upper quadrant. Upper abdom en incompletely imaged. IVC filter in place. Urethral catheter partially visualized. IMPRESSION : Nasogastric tube is in good radiographic position. Other findings are stable.
[2020-05-15] MEDS: Bisacodyl 10 MG SUPP PR SCH (10:43)
[2020-05-15] MEDS: Polyethylene Glycol 3350 17 GM Packet PO SCH (10:44)
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
[2020-05-15] MEDS ORDERED: Furosemide 20 MG/2 ML VIAL SLOW IVP SCH (15:00)
[2020-05-15] MEDS ORDERED: HYDROcodone/Acetaminophen 10/325 mg Tablet PO SCH (16:00)
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
[2020-05-15] MEDS: Furosemide 20 MG/2 ML VIAL SLOW IVP SCH (16:35)
[2020-05-15 16:49] LABS: Anion Gap 17 mmol/L (10-20); BUN (Urea Nitrogen) 9 mg/dL (8.9-20.6); Calc. Creatinine Clearance 189 mL/min (70-130); Calcium 8.6 mg/dL (7.8-10.44); Carbon Dioxide 26 mmol/L (22-29); Chloride 99 mmol/L (98-107); Estimated GFR-MDRD Greater than 90; Glucose 115 mg/dL (70-105); Magnesium 2.2 mg/dL (1.6-2.6); Phosphorus 3.1 mg/dL (2.3-4.7); Potassium 3.7 mmol/L (3.5-5.1); Sodium 138 mmol/L (136-145)
[2020-05-15] MEDS ORDERED: Sodium Chloride 1 GM TAB PER TUBE SCH ×3 (21:00)
[2020-05-16] MEDS: Acetaminophen/Codeine 30-300mg Tablet PO SCH ×4 (00:22→17:45)
[2020-05-16] MEDS: carBAMazepine 200 MG TAB PO SCH ×2 (00:22→09:17)
[2020-05-16] MEDS: Acetaminophen 650 MG/20.3 ML UDCUP PO SCH ×4 (00:22→17:45)
[2020-05-16] MEDS: Piperacillin/Tazobactam 3.375 GM in Sodium Chloride 0.9% 100 ML IVPB SCH ×3 (00:23→11:53)
[2020-05-16] MEDS: Furosemide 20 MG/2 ML VIAL SLOW IVP SCH ×2 (00:32→09:17)
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
[2020-05-16 04:29] LABS: Anion Gap 17 mmol/L (10-20); BUN (Urea Nitrogen) 11 mg/dL (8.9-20.6); Calc. Creatinine Clearance 176 mL/min (70-130); Calcium 8.6 mg/dL (7.8-10.44); Carbon Dioxide 24 mmol/L (22-29); Chloride 106 mmol/L (98-107); Estimated GFR-MDRD Greater than 90; Glucose 144 mg/dL (70-105); Magnesium 2.2 mg/dL (1.6-2.6); Phosphorus 2.4 mg/dL (2.3-4.7); Potassium 3.5 mmol/L (3.5-5.1); Sodium 143 mmol/L (136-145)
[2020-05-16 05:15] LABS: #Basophils 0.1 thou/uL (0.0-0.2); #Eosinphils 0.1 thou/uL (0.0-0.7); #Lymphocytes 1.9 thou/uL (1.20-3.40); #Monocytes 1.6 thou/uL (0.11-0.59); %Basophils 0.5 % (0.0-1.0); %Eosinophils 0.6 % (0.0-10.0); %Lymphocytes 11.2 % (21.0-51.0); %Monocytes 9.8 % (0.0-10.0); %Neutrophils 77.9 % (42.0-75.0); Hemoglobin 11.1 g/dL (14.0-18.0); Mean Corpuscular HGB CONC 33.5 g/dL (32.0-36.0); Mean Corpuscular Hemoglobin 30.3 pg (27.0-31.0); Mean Corpuscular Volume 90.6 fL (78.0-98.0); Mean Platelet Volume 7.5 fL (7.4-10.4); Platelet Count 349 thou/uL (130-400); RBC Distribution Width 15.1 % (11.5-14.5); Red Blood Cell (RBC) Count 3.67 mill/uL (4.70-6.10); White Blood Cell (WBC) Count 16.6 thou/uL (4.8-10.8)
[2020-05-16] MEDS: Famotidine/PF 20 mg/2ml Vial SLOW IVP SCH ×2 (09:16→20:11)
[2020-05-16] MEDS: Polyethylene Glycol 3350 17 GM Packet PO SCH (09:17)
[2020-05-16] MEDS: Saccharomyces boulardii 250 MG CAP PO SCH ×2 (09:17→20:10)
[2020-05-16] MEDS: clonazePAM 1 MG TAB PO SCH ×3 (09:23→20:10)
[2020-05-16] MEDS: Bisacodyl 10 MG SUPP PR SCH (10:26)
[2020-05-16] MEDS: Senokot S 8.6-50 MG TAB PO SCH ×2 (10:26→22:12)
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
[2020-05-16] MEDS ORDERED: Fluconazole In NaCl,Iso-Osm 400 MG in Premix Bag 1 BAG IVPB SCH (13:45)
[2020-05-16] MEDS: cefTRIAXone\\ROCEPHIN 2 GM in Sodium Chloride 0.9% 100 ML IVPB SCH (15:19)
[2020-05-16] MEDS ORDERED: carBAMazepine 200 MG TAB PO SCH (21:00)
[2020-05-17] MEDS: Acetaminophen 650 MG/20.3 ML UDCUP PO SCH ×4 (00:49→17:19)
[2020-05-17] MEDS: Acetaminophen/Codeine 30-300mg Tablet PO SCH ×4 (00:49→17:20)
[2020-05-17 04:11] LABS: Anion Gap 15 mmol/L (10-20); BUN (Urea Nitrogen) 16 mg/dL (8.9-20.6); CK (CPK) 1456 U/L (30-200); Calc. Creatinine Clearance 192 mL/min (70-130); Calcium 8.7 mg/dL (7.8-10.44); Carbon Dioxide 23 mmol/L (22-29); Chloride 110 mmol/L (98-107); Estimated GFR-MDRD Greater than 90; Glucose 124 mg/dL (70-105); Magnesium 2.4 mg/dL (1.6-2.6); Phosphorus 2.7 mg/dL (2.3-4.7); Potassium 3.1 mmol/L (3.5-5.1); Sodium 145 mmol/L (136-145)
[2020-05-17 04:33] LABS: Band 17 % (5-11); Eosinophils 1 % (0-10); Hemoglobin 10.8 g/dL (14.0-18.0); Hypochromia SLIGHT = 6-15 cells (100X) (0-5/hpf); Lymphocytes 14 % (21-51); MDiff Complete? YES; Mean Corpuscular HGB CONC 33.1 g/dL (32.0-36.0); Mean Corpuscular Hemoglobin 30.8 pg (27.0-31.0); Mean Platelet Volume 8.2 fL (7.4-10.4); Metamyelocyte 1 % (0-0); Monocytes 6 % (0-10); Neutrophil 61 % (42-75); Platelet Count 277 thou/uL (130-400); Platelet Morphology Comment Appears Adequate; RBC Distribution Width 15.7 % (11.5-14.5); Red Blood Cell (RBC) Count 3.51 mill/uL (4.70-6.10); White Blood Cell (WBC) Count 18.3 thou/uL (4.8-10.8)
[2020-05-17] MEDS ORDERED: Potassium Phosphate 30 MMOL in Sodium Chloride 0.9% 250 ML 250 ML IVPB SCH (08:30)
[2020-05-17] MEDS: Bisacodyl 10 MG SUPP PR SCH (08:48)
[2020-05-17] MEDS: Famotidine/PF 20 mg/2ml Vial SLOW IVP SCH ×2 (08:48→20:36)
[2020-05-17] MEDS: Saccharomyces boulardii 250 MG CAP PO SCH ×2 (08:49→21:56)
[2020-05-17] MEDS: Senokot S 8.6-50 MG TAB PO SCH ×2 (08:50→20:30)
[2020-05-17] MEDS: carBAMazepine 200 MG TAB PO SCH (08:50)
[2020-05-17] MEDS: Polyethylene Glycol 3350 17 GM Packet PO SCH (08:50)
[2020-05-17] MEDS: clonazePAM 1 MG TAB PO SCH ×2 (08:53→20:38)
[2020-05-17] MEDS ORDERED: Fluconazole In NaCl,Iso-Osm 400 MG in Premix Bag 1 BAG IVPB SCH (09:00)
--- NOTE | 2020-05-17 09:41 | CT ---
HEAD CT WITHOUT CONTRAST: HISTORY: Intracranial hemorrhage. Follow-up exam. COMPARISON: 05/09/2020. FINDINGS: Hemorrhage: Redemonstration of a right frontal intraparenchymal hematoma measuring 2.7 x 3.2 cm. Ther e are expected evolutionary changes with liquefication of the hematoma and adjacent progression of edema. Additional intraparenchymal hematomas are noted in the medial left frontal lobe with associate d edema, bilateral temporal lobes with associated hemorrhage and edema and the left occipital lobe. Previously noted subdural blood along the left and right frontal convexities is less evident. There i s redemonstration of minimal parafalcine subdural hemorrhage. Redemonstration of left thalamic hemorrhages. Brain parenchyma: Loss of azul-white matter differentiation in the left and right frontal lobes and t emporal lobes secondary to hemorrhagic contusions. Ventricular system: Ventricles and sulci are patent and symmetric. Calvarium: Left occipital calvarial fracture is redemonstrated. Additional fractures of the skull bas e are redemonstrated. Sinuses and mastoid air cells: Persistent opacification of the paranasal sinuses. IMPRESSION: 1. Expected evolutionary changes of multifocal intraparenchymal hemorrhages. There is associated loss of azul-white matter differentiation and edema. 2. Redemonstration of a small amount of subdural hemorrhage. 3. No evidence of new intraparenchymal hemorrhages. Transcribed Date/Time: 05/17/2020 10:03 AM
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
[2020-05-17 13:19] VITALS: BMI 26.4
[2020-05-17] MEDS: cefTRIAXone\\ROCEPHIN 2 GM in Sodium Chloride 0.9% 100 ML IVPB SCH (15:40)
[2020-05-17] MEDS: Amantadine HCl 100 mg Capsule PO SCH (21:56)
[2020-05-18] MEDS: Acetaminophen 650 MG/20.3 ML UDCUP PO SCH ×5 (00:29→23:01)
[2020-05-18] MEDS: Acetaminophen/Codeine 30-300mg Tablet PO SCH ×5 (00:30→23:01)
[2020-05-18] MEDS: Polyethylene Glycol 3350 17 GM Packet PO SCH (11:05)
[2020-05-18] MEDS: Senokot S 8.6-50 MG TAB PO SCH ×2 (11:05→20:27)
[2020-05-18] MEDS: Bisacodyl 10 MG SUPP PR SCH (11:05)
[2020-05-18] MEDS: carBAMazepine 200 MG TAB PO SCH (11:06)
[2020-05-18] MEDS: Famotidine/PF 20 mg/2ml Vial SLOW IVP SCH ×2 (11:06→22:43)
[2020-05-18] MEDS: Saccharomyces boulardii 250 MG CAP PO SCH ×2 (11:07→20:27)
--- NOTE | 2020-05-18 12:01 | RAD ---
KUB: 05/18/20 PROVIDED CLINICAL HISTORY: Enteric catheter placement. COMPARISON: 05/15/2020 FINDINGS: Interval placement of Dobhoff tube, the tip of which projects over the right mid abdomen, centrally. The abdominal bowel gas pattern is nonspecific. The visualized lung bases appear clear. IVC filter is again seen. IMPRESSION: As above. POS: DORINA
[2020-05-18] MEDS: clonazePAM 1 MG TAB PO SCH (12:47)
[2020-05-18] MEDS: Amantadine HCl 100 mg Capsule PO SCH ×2 (12:47→20:27)
[2020-05-18] MEDS ORDERED: RisperDAL M-TAB 1 MG TAB SL SCH (14:30)
[2020-05-18] MEDS: Morphine 2 MG/ML VIAL SLOW IVP PRN ×3 (15:02→23:20)
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
[2020-05-18] MEDS: cefTRIAXone\\ROCEPHIN 2 GM in Sodium Chloride 0.9% 100 ML IVPB SCH (16:46)
[2020-05-18] MEDS: clonazePAM 0.5 MG TAB PO SCH (21:48)
[2020-05-19] MEDS ORDERED: RisperDAL M-TAB 1 MG TAB SL SCH ×2 (01:15→19:00)
[2020-05-19] MEDS: clonazePAM 0.5 MG TAB PO SCH ×3 (01:48→20:45)
[2020-05-19] MEDS: Acetaminophen 650 MG/20.3 ML UDCUP PO SCH ×5 (01:48→23:21)
[2020-05-19] MEDS: Acetaminophen/Codeine 30-300mg Tablet PO SCH ×5 (01:49→23:21)
[2020-05-19] MEDS: Morphine 2 MG/ML VIAL SLOW IVP PRN ×5 (02:47→17:55)
[2020-05-19] MEDS: Senokot S 8.6-50 MG TAB PO SCH ×2 (08:34→20:45)
[2020-05-19] MEDS: Amantadine HCl 100 mg Capsule PO SCH ×2 (08:34→20:44)
[2020-05-19] MEDS: Polyethylene Glycol 3350 17 GM Packet PO SCH (08:35)
[2020-05-19] MEDS: Famotidine/PF 20 mg/2ml Vial SLOW IVP SCH ×2 (08:35→20:45)
[2020-05-19] MEDS: Bisacodyl 10 MG SUPP PR SCH (08:35)
[2020-05-19] MEDS: Saccharomyces boulardii 250 MG CAP PO SCH ×2 (08:35→20:45)
--- NOTE | 2020-05-19 11:37 | RAD ---
KUB: 05/19/20 PROVIDED CLINICAL HISTORY: Enteric catheter placement. COMPARISON: 05/18/2020 FINDINGS: Dobhoff catheter is no longer evident. Enteric catheter now present, tip overlying the left upper duarte drant. The abdominal bowel gas pattern is nonspecific as visualized. IVC filter is again seen. IMPRESSION: Enteric catheter positioning as above. POS: DORINA
[2020-05-19] MEDS: cefTRIAXone\\ROCEPHIN 2 GM in Sodium Chloride 0.9% 100 ML IVPB SCH (14:36)
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
[2020-05-19] MEDS: RisperDAL Oral Solution 1 MG/ML UDCUP PO SCH (20:45)
[2020-05-20] MEDS: Morphine 2 MG/ML VIAL SLOW IVP PRN ×3 (00:49→22:05)
[2020-05-20] MEDS: Acetaminophen 650 MG/20.3 ML UDCUP PO SCH ×3 (05:23→17:43)
[2020-05-20] MEDS: Acetaminophen/Codeine 30-300mg Tablet PO SCH ×3 (05:23→17:43)
[2020-05-20 07:42] LABS: #Basophils 0.1 thou/uL (0.0-0.2); #Eosinphils 0.4 thou/uL (0.0-0.7); #Lymphocytes 1.8 thou/uL (1.20-3.40); #Monocytes 1.1 thou/uL (0.11-0.59); #Neutrophils 12.1 thou/uL (1.40-6.50); %Basophils 0.6 % (0.0-1.0); %Eosinophils 2.8 % (0.0-10.0); %Lymphocytes 11.8 % (21.0-51.0); %Monocytes 7.2 % (0.0-10.0); %Neutrophils 77.6 % (42.0-75.0); Hemoglobin 11.5 g/dL (14.0-18.0); Mean Corpuscular HGB CONC 32.8 g/dL (32.0-36.0); Mean Corpuscular Hemoglobin 31.3 pg (27.0-31.0); Mean Corpuscular Volume 95.5 fL (78.0-98.0); Mean Platelet Volume 8.1 fL (7.4-10.4); Platelet Count 528 thou/uL (130-400); Red Blood Cell (RBC) Count 3.68 mill/uL (4.70-6.10); White Blood Cell (WBC) Count 15.6 thou/uL (4.8-10.8)
[2020-05-20] MEDS: Saccharomyces boulardii 250 MG CAP PO SCH ×2 (08:45→20:11)
[2020-05-20] MEDS: clonazePAM 0.5 MG TAB PO SCH ×2 (08:45→20:10)
[2020-05-20] MEDS: Amantadine HCl 100 mg Capsule PO SCH ×2 (08:45→20:11)
[2020-05-20] MEDS: Bisacodyl 10 MG SUPP PR SCH (08:46)
[2020-05-20] MEDS: Polyethylene Glycol 3350 17 GM Packet PO SCH (08:46)
[2020-05-20] MEDS: Senokot S 8.6-50 MG TAB PO SCH (08:46)
[2020-05-20] MEDS: Famotidine/PF 20 mg/2ml Vial SLOW IVP SCH ×2 (08:46→20:11)
[2020-05-20] MEDS: RisperDAL Oral Solution 1 MG/ML UDCUP PO SCH ×2 (08:46→20:11)
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
[2020-05-20] MEDS: cefTRIAXone\\ROCEPHIN 2 GM in Sodium Chloride 0.9% 100 ML IVPB SCH (17:36)
[2020-05-21] MEDS: Acetaminophen/Codeine 30-300mg Tablet PO SCH ×5 (00:19→23:45)
[2020-05-21] MEDS: Acetaminophen 650 MG/20.3 ML UDCUP PO SCH ×5 (00:19→23:45)
[2020-05-21] MEDS: Morphine 2 MG/ML VIAL SLOW IVP PRN (03:29)
[2020-05-21] MEDS: RisperDAL Oral Solution 1 MG/ML UDCUP PO SCH ×2 (08:33→20:26)
[2020-05-21] MEDS: clonazePAM 0.5 MG TAB PO SCH ×2 (08:33→20:20)
[2020-05-21] MEDS: Saccharomyces boulardii 250 MG CAP PO SCH ×2 (08:33→20:26)
[2020-05-21] MEDS: Amantadine HCl 100 mg Capsule PO SCH ×2 (08:33→20:21)
[2020-05-21] MEDS: Famotidine/PF 20 mg/2ml Vial SLOW IVP SCH ×2 (08:34→20:25)
[2020-05-21] MEDS: Polyethylene Glycol 3350 17 GM Packet PO SCH (08:34)
[2020-05-21] MEDS: cefTRIAXone\\ROCEPHIN 2 GM in Sodium Chloride 0.9% 100 ML IVPB SCH (14:09)
[2020-05-21] MEDS ORDERED: Fluconazole In NaCl,Iso-Osm 200 MG in Premix Bag 1 BAG IVPB SCH (14:45)
[2020-05-21] MEDS: Nystatin 500,000 UNITS/5 ML UDCUP SSP SCH ×2 (16:42→20:20)
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
[2020-05-22] MEDS: Acetaminophen/Codeine 30-300mg Tablet PO SCH ×4 (05:16→23:05)
[2020-05-22] MEDS: Acetaminophen 650 MG/20.3 ML UDCUP PO SCH ×4 (05:16→23:04)
[2020-05-22 05:47] LABS: Hemoglobin 11.5 g/dL (14.0-18.0); Mean Corpuscular HGB CONC 32.8 g/dL (32.0-36.0); Mean Corpuscular Hemoglobin 31.8 pg (27.0-31.0); Mean Corpuscular Volume 96.7 fL (78.0-98.0); Mean Platelet Volume 8.7 fL (7.4-10.4); Platelet Count 594 thou/uL (130-400); RBC Distribution Width 16.6 % (11.5-14.5); Red Blood Cell (RBC) Count 3.62 mill/uL (4.70-6.10); White Blood Cell (WBC) Count 14.6 thou/uL (4.8-10.8)
[2020-05-22 06:14] LABS: Anion Gap 16 mmol/L (10-20); BUN (Urea Nitrogen) 19 mg/dL (8.9-20.6); Calc. Creatinine Clearance 195 mL/min (70-130); Calcium 9.1 mg/dL (7.8-10.44); Carbon Dioxide 21 mmol/L (22-29); Chloride 109 mmol/L (98-107); Estimated GFR-MDRD Greater than 90; Glucose 124 mg/dL (70-105); Magnesium 2.2 mg/dL (1.6-2.6); Phosphorus 3.6 mg/dL (2.3-4.7); Potassium 4.1 mmol/L (3.5-5.1); Sodium 142 mmol/L (136-145)
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
[2020-05-22] MEDS ORDERED: Fluconazole In NaCl,Iso-Osm 100 MG, Admixture Fee 1 EACH in Premix Bag 1 BAG IVPB SCH ×2 (07:30→15:00)
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
[2020-05-22] MEDS: Nystatin 500,000 UNITS/5 ML UDCUP SSP SCH ×4 (09:44→21:04)
[2020-05-22] MEDS: Famotidine/PF 20 mg/2ml Vial SLOW IVP SCH ×2 (09:44→21:04)
[2020-05-22] MEDS: RisperDAL Oral Solution 1 MG/ML UDCUP PO SCH ×2 (09:44→21:04)
[2020-05-22] MEDS: Enoxaparin Sodium 40 MG/0.4 ML SYRINGE SC SCH (09:45)
[2020-05-22] MEDS: clonazePAM 0.5 MG TAB PO SCH ×2 (09:45→21:04)
[2020-05-22] MEDS: Amantadine HCl 100 mg Capsule PO SCH ×2 (09:45→21:05)
[2020-05-22] MEDS: Saccharomyces boulardii 250 MG CAP PO SCH ×2 (09:45→21:05)
--- NOTE | 2020-05-22 14:13 | RAD ---
SUPINE ABDOMEN: 05/22/20 INDICATIONS: Assess Dobhoff placement. FINDINGS/IMPRESSION: A Dobhoff type NG tube has been placed. Two passes through the EG junction and the tip overlies the r ight upper abdomen in the region of the gastric antrum. Bowel gas pattern unremarkable. Vena cava filter is noted. POS: AGW
[2020-05-22] MEDS: Morphine 2 MG/ML VIAL SLOW IVP PRN (14:50)
[2020-05-22] MEDS: Fluconazole In NaCl,Iso-Osm 100 MG, Admixture Fee 1 EACH in Premix Bag 1 BAG IVPB SCH (16:17)
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
[2020-05-23] MEDS: Morphine 2 MG/ML VIAL SLOW IVP PRN (03:14)
[2020-05-23] MEDS: Acetaminophen/Codeine 30-300mg Tablet PO SCH ×4 (05:31→23:10)
[2020-05-23] MEDS: Acetaminophen 650 MG/20.3 ML UDCUP PO SCH ×4 (05:31→23:10)
[2020-05-23] MEDS: RisperDAL Oral Solution 1 MG/ML UDCUP PO SCH ×2 (08:16→20:54)
[2020-05-23] MEDS: Saccharomyces boulardii 250 MG CAP PO SCH ×2 (08:16→21:00)
[2020-05-23] MEDS: Enoxaparin Sodium 40 MG/0.4 ML SYRINGE SC SCH (08:16)
[2020-05-23] MEDS: clonazePAM 0.5 MG TAB PO SCH ×2 (08:16→21:01)
[2020-05-23] MEDS: Nystatin 500,000 UNITS/5 ML UDCUP SSP SCH ×4 (08:16→21:00)
[2020-05-23] MEDS: Famotidine/PF 20 mg/2ml Vial SLOW IVP SCH ×2 (08:16→21:01)
[2020-05-23] MEDS: Amantadine HCl 100 mg Capsule PO SCH ×2 (08:16→21:00)
[2020-05-23] MEDS ORDERED: Acetaminophen 325 MG/10.15 ML UDCUP PO PRN (08:24)
[2020-05-23 08:27] LABS: #Basophils 0.1 thou/uL (0.0-0.2); #Eosinphils 0.3 thou/uL (0.0-0.7); #Lymphocytes 2.4 thou/uL (1.20-3.40); #Monocytes 0.8 thou/uL (0.11-0.59); #Neutrophils 7.4 thou/uL (1.40-6.50); %Basophils 1.2 % (0.0-1.0); %Eosinophils 3.1 % (0.0-10.0); %Lymphocytes 21.8 % (21.0-51.0); %Monocytes 7.3 % (0.0-10.0); %Neutrophils 66.7 % (42.0-75.0); Hemoglobin 11.6 g/dL (14.0-18.0); Mean Corpuscular HGB CONC 32.5 g/dL (32.0-36.0); Mean Corpuscular Hemoglobin 31.5 pg (27.0-31.0); Mean Corpuscular Volume 97.1 fL (78.0-98.0); Mean Platelet Volume 7.9 fL (7.4-10.4); Platelet Count 619 thou/uL (130-400); RBC Distribution Width 16.5 % (11.5-14.5); Red Blood Cell (RBC) Count 3.67 mill/uL (4.70-6.10); White Blood Cell (WBC) Count 11.1 thou/uL (4.8-10.8)
[2020-05-23] MEDS: Fluconazole In NaCl,Iso-Osm 100 MG, Admixture Fee 1 EACH in Premix Bag 1 BAG IVPB SCH (15:48)
[2020-05-23] MEDS: Melatonin 3 MG TAB PO SCH (21:01)
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
[2020-05-24] MEDS: Ibuprofen 600 MG TAB PO PRN ×3 (02:46→20:45)
[2020-05-24] MEDS: Acetaminophen 650 MG/20.3 ML UDCUP PO SCH ×4 (05:20→23:32)
[2020-05-24] MEDS: Acetaminophen/Codeine 30-300mg Tablet PO SCH ×4 (05:20→23:32)
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
[2020-05-24] MEDS: Enoxaparin Sodium 40 MG/0.4 ML SYRINGE SC SCH (09:27)
[2020-05-24] MEDS: clonazePAM 0.5 MG TAB PO SCH ×2 (09:27→20:45)
[2020-05-24] MEDS: Saccharomyces boulardii 250 MG CAP PO SCH ×2 (09:27→20:44)
[2020-05-24] MEDS: Amantadine HCl 100 mg Capsule PO SCH ×2 (09:27→20:45)
[2020-05-24] MEDS: Nystatin 500,000 UNITS/5 ML UDCUP SSP SCH ×4 (09:27→20:44)
[2020-05-24] MEDS: RisperDAL Oral Solution 1 MG/ML UDCUP PO SCH ×2 (09:27→20:44)
[2020-05-24] MEDS: Famotidine 20 MG TAB PER TUBE SCH ×2 (09:27→20:44)
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
[2020-05-24] MEDS: Fluconazole In NaCl,Iso-Osm 100 MG, Admixture Fee 1 EACH in Premix Bag 1 BAG IVPB SCH (16:15)
[2020-05-24] MEDS: Melatonin 3 MG TAB PO SCH (20:44)
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
[2020-05-25] MEDS: Acetaminophen 650 MG/20.3 ML UDCUP PO SCH ×4 (05:45→23:29)
[2020-05-25] MEDS: Acetaminophen/Codeine 30-300mg Tablet PO SCH ×4 (05:45→23:29)
[2020-05-25] MEDS ORDERED: Lidocaine 1% PF 5 ML VIAL ONE (09:41)
[2020-05-25] MEDS ORDERED: PROPOFOL 200 MG/20 ML VIAL ONE (09:41)
[2020-05-25] MEDS ORDERED: Promethazine HCl 25 MG/ML VIAL SLOW IVP PRN (09:47)
[2020-05-25] MEDS ORDERED: Promethazine HCl 25 MG/ML VIAL IM PRN (09:47)
[2020-05-25] MEDS ORDERED: Ondansetron HCl/PF 4 MG/2 ML Vial IVP PRN (09:47)
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
[2020-05-25] MEDS: Nystatin 500,000 UNITS/5 ML UDCUP SSP SCH ×4 (12:30→20:39)
[2020-05-25] MEDS: RisperDAL Oral Solution 1 MG/ML UDCUP PO SCH ×2 (12:30→20:39)
[2020-05-25] MEDS: Enoxaparin Sodium 40 MG/0.4 ML SYRINGE SC SCH (12:30)
[2020-05-25] MEDS: Famotidine 20 MG TAB PER TUBE SCH ×2 (12:31→20:38)
[2020-05-25] MEDS: clonazePAM 0.5 MG TAB PO SCH ×2 (12:32→20:38)
[2020-05-25] MEDS: Amantadine HCl 100 mg Capsule PO SCH ×2 (12:32→20:38)
[2020-05-25] MEDS: Saccharomyces boulardii 250 MG CAP PO SCH ×2 (12:32→20:39)
[2020-05-25] MEDS: Fluconazole In NaCl,Iso-Osm 100 MG, Admixture Fee 1 EACH in Premix Bag 1 BAG IVPB SCH (18:04)
[2020-05-25] MEDS: Ibuprofen 600 MG TAB PO PRN (20:38)
[2020-05-25] MEDS: Melatonin 3 MG TAB PO SCH (20:38)
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
[2020-05-26] MEDS: Acetaminophen 650 MG/20.3 ML UDCUP PO SCH ×4 (05:09→23:10)
[2020-05-26] MEDS: Acetaminophen/Codeine 30-300mg Tablet PO SCH ×4 (05:09→23:11)
[2020-05-26 05:38] LABS: #Basophils 0.1 thou/uL (0.0-0.2); #Eosinphils 0.4 thou/uL (0.0-0.7); #Monocytes 0.8 thou/uL (0.11-0.59); #Neutrophils 5.6 thou/uL (1.40-6.50); %Basophils 1.2 % (0.0-1.0); %Eosinophils 4.6 % (0.0-10.0); %Lymphocytes 22.1 % (21.0-51.0); %Monocytes 9.1 % (0.0-10.0); %Neutrophils 63.1 % (42.0-75.0); Hemoglobin 11.5 g/dL (14.0-18.0); Mean Corpuscular HGB CONC 32.2 g/dL (32.0-36.0); Mean Corpuscular Hemoglobin 31.7 pg (27.0-31.0); Mean Corpuscular Volume 98.5 fL (78.0-98.0); Mean Platelet Volume 7.8 fL (7.4-10.4); Platelet Count 527 thou/uL (130-400); RBC Distribution Width 16.4 % (11.5-14.5); Red Blood Cell (RBC) Count 3.64 mill/uL (4.70-6.10); White Blood Cell (WBC) Count 8.9 thou/uL (4.8-10.8)
[2020-05-26 05:57] LABS: Anion Gap 13 mmol/L (10-20); BUN (Urea Nitrogen) 17 mg/dL (8.9-20.6); Calc. Creatinine Clearance 175 mL/min (70-130); Calcium 8.7 mg/dL (7.8-10.44); Carbon Dioxide 26 mmol/L (22-29); Chloride 108 mmol/L (98-107); Estimated GFR-MDRD Greater than 90; Glucose 103 mg/dL (70-105); Magnesium 2.2 mg/dL (1.6-2.6); Phosphorus 3.6 mg/dL (2.3-4.7); Potassium 3.8 mmol/L (3.5-5.1); Sodium 143 mmol/L (136-145)
[2020-05-26] MEDS: RisperDAL Oral Solution 1 MG/ML UDCUP PO SCH ×2 (08:16→21:07)
[2020-05-26] MEDS: Enoxaparin Sodium 40 MG/0.4 ML SYRINGE SC SCH (08:16)
[2020-05-26] MEDS: Nystatin 500,000 UNITS/5 ML UDCUP SSP SCH ×4 (08:16→21:07)
[2020-05-26] MEDS: Amantadine HCl 100 mg Capsule PO SCH ×2 (08:16→21:07)
[2020-05-26] MEDS: clonazePAM 0.5 MG TAB PO SCH ×2 (08:17→21:08)
[2020-05-26] MEDS: Saccharomyces boulardii 250 MG CAP PO SCH ×2 (08:17→21:07)
[2020-05-26] MEDS: Famotidine 20 MG TAB PER TUBE SCH ×2 (08:17→21:07)
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
[2020-05-26] MEDS: Fluconazole In NaCl,Iso-Osm 100 MG, Admixture Fee 1 EACH in Premix Bag 1 BAG IVPB SCH (14:33)
[2020-05-26] MEDS: Melatonin 3 MG TAB PO SCH (21:07)
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
[2020-05-27] MEDS: Ibuprofen 600 MG TAB PO PRN (02:10)
[2020-05-27] MEDS: Acetaminophen 650 MG/20.3 ML UDCUP PO SCH ×4 (05:14→23:42)
[2020-05-27] MEDS: Acetaminophen/Codeine 30-300mg Tablet PO SCH ×4 (05:16→23:42)
[2020-05-27] MEDS: Enoxaparin Sodium 40 MG/0.4 ML SYRINGE SC SCH (08:59)
[2020-05-27] MEDS: clonazePAM 0.5 MG TAB PO SCH ×2 (09:00→21:16)
[2020-05-27] MEDS: Amantadine HCl 100 mg Capsule PO SCH ×2 (09:00→21:16)
[2020-05-27] MEDS: Saccharomyces boulardii 250 MG CAP PO SCH ×2 (09:01→21:16)
[2020-05-27] MEDS: Famotidine 20 MG TAB PER TUBE SCH ×2 (09:01→21:16)
[2020-05-27] MEDS: Nystatin 500,000 UNITS/5 ML UDCUP SSP SCH ×4 (09:01→21:16)
[2020-05-27] MEDS: Fluconazole 100 MG TAB PER TUBE SCH (11:13)
[2020-05-27] MEDS: Scopolamine 1.5 mg/72 hour Patch TD SCH (13:42)
--- NOTE | 2020-05-27 15:59 | ULT ---
ULTRASOUND DOPPLER DUPLEX VENOUS BILATERAL LOWER EXTREMITIES: DATE: 05/27/2020 HISTORY: 25-year-old male with bilateral lower extremity edema. TECHNIQUE: Grayscale, color-flow, and spectral analysis, of major veins of bilateral lower extremities. FINDINGS: There is demonstration of blood flow with normal compressibility, of the bilateral common femoral, pr ofunda femoral, greater saphenous, femoral, popliteal, and posterior tibial, veins. IMPRESSION: Negative. No deep venous thrombosis of bilateral lower extremities.
[2020-05-27] MEDS: Melatonin 3 MG TAB PO SCH (21:16)
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
--- NOTE | 2020-05-27 23:11 | RAD ---
Left knee 4 views HISTORY: Injury. FINDINGS: Comminuted impacted predominantly nondisplaced fracture involves the proximal tibial metadi aphysis. There is 0.3 cm gap and no significant depression at a sagittally oriented fracture through the articular surface of the lateral tibial plateau. Distal femur is intact. No significant f luid distention of the suprapatellar bursa. IMPRESSION : Comminuted impacted fracture of the proximal left tibia including intra-articular extension to the la teral tibial plateau.
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
[2020-05-28] MEDS ORDERED: Acetaminophen 650 MG/20.3 ML UDCUP PO SCH (04:16)
[2020-05-28] MEDS: Acetaminophen/Codeine 30-300mg Tablet PO SCH ×4 (05:09→23:09)
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
[2020-05-28] MEDS: Nystatin 500,000 UNITS/5 ML UDCUP SSP SCH ×4 (09:23→21:27)
[2020-05-28] MEDS: Amantadine HCl 100 mg Capsule PO SCH ×2 (09:23→21:27)
[2020-05-28] MEDS: Enoxaparin Sodium 40 MG/0.4 ML SYRINGE SC SCH (09:23)
[2020-05-28] MEDS: clonazePAM 0.5 MG TAB PO SCH ×2 (09:23→21:26)
[2020-05-28] MEDS: Saccharomyces boulardii 250 MG CAP PO SCH ×2 (09:23→21:27)
[2020-05-28] MEDS: Fluconazole 100 MG TAB PER TUBE SCH (09:23)
[2020-05-28] MEDS: Famotidine 20 MG TAB PER TUBE SCH ×2 (09:23→21:27)
[2020-05-28] MEDS: Acetaminophen 325 MG/10.15 ML UDCUP PO SCH ×3 (11:51→23:10)
[2020-05-28] MEDS: Melatonin 3 MG TAB PO SCH (21:26)
[2020-05-28] MEDS: Acetaminophen/Codeine 30-300mg Tablet PO PRN (21:33)
[2020-05-29] MEDS: Acetaminophen 325 MG/10.15 ML UDCUP PO SCH ×4 (05:19→23:51)
[2020-05-29] MEDS: Acetaminophen/Codeine 30-300mg Tablet PO SCH ×4 (05:21→23:51)
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
[2020-05-29] MEDS: Nystatin 500,000 UNITS/5 ML UDCUP SSP SCH ×4 (08:59→20:37)
[2020-05-29] MEDS: Amantadine HCl 100 mg Capsule PO SCH ×2 (08:59→20:38)
[2020-05-29] MEDS: Enoxaparin Sodium 40 MG/0.4 ML SYRINGE SC SCH (08:59)
[2020-05-29] MEDS: Famotidine 20 MG TAB PER TUBE SCH ×2 (08:59→20:38)
[2020-05-29] MEDS: clonazePAM 0.5 MG TAB PO SCH ×2 (08:59→20:37)
[2020-05-29] MEDS: Acetaminophen/Codeine 30-300mg Tablet PO PRN (20:37)
[2020-05-29] MEDS: Melatonin 3 MG TAB PO SCH (20:37)
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
[2020-05-30] MEDS: Acetaminophen/Codeine 30-300mg Tablet PO SCH ×3 (05:36→18:04)
[2020-05-30] MEDS: Acetaminophen 325 MG/10.15 ML UDCUP PO SCH ×3 (05:36→18:03)
[2020-05-30] MEDS: Famotidine 20 MG TAB PER TUBE SCH ×2 (09:14→20:23)
[2020-05-30] MEDS: Enoxaparin Sodium 40 MG/0.4 ML SYRINGE SC SCH (09:14)
[2020-05-30] MEDS: Amantadine HCl 100 mg Capsule PO SCH ×2 (09:14→20:23)
[2020-05-30] MEDS: clonazePAM 0.5 MG TAB PO SCH ×2 (09:15→20:22)
[2020-05-30] MEDS: Nystatin 500,000 UNITS/5 ML UDCUP SSP SCH ×4 (09:15→20:22)
[2020-05-30] MEDS: Scopolamine 1.5 mg/72 hour Patch TD SCH (12:50)
[2020-05-30] MEDS: Melatonin 3 MG TAB PO SCH (20:22)
[2020-05-30] MEDS: Acetaminophen/Codeine 30-300mg Tablet PO PRN (20:23)
[2020-05-31] MEDS: Acetaminophen 325 MG/10.15 ML UDCUP PO SCH ×4 (00:01→17:35)
[2020-05-31] MEDS: Acetaminophen/Codeine 30-300mg Tablet PO SCH ×3 (00:02→20:26)
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
[2020-05-31] MEDS: Nystatin 500,000 UNITS/5 ML UDCUP SSP SCH ×4 (09:17→20:30)
[2020-05-31] MEDS: Famotidine 20 MG TAB PER TUBE SCH ×2 (09:17→20:31)
[2020-05-31] MEDS: clonazePAM 0.5 MG TAB PO SCH ×2 (09:17→20:31)
[2020-05-31] MEDS: Ibuprofen 600 MG TAB PO PRN (09:17)
[2020-05-31] MEDS: Enoxaparin Sodium 40 MG/0.4 ML SYRINGE SC SCH (09:17)
[2020-05-31] MEDS: Amantadine HCl 100 mg Capsule PO SCH ×2 (09:17→20:32)
--- NOTE | 2020-05-31 11:18 | RAD ---
Modified barium swallow HISTORY: Dysphagia. Feeding difficulties. FINDINGS: Exam was performed by speech pathology with multiple consistencies. Video review is availab le and shows poor oral control and severe early spill of contrast to the level of the piriform sinuses. Near complete loss of swallowing control. Very limited movement of the epiglottis with most forceful effort by the patient. Deep penetration and small amount of aspiration was seen on one occasion with the thinner liquids. Large amount of resultant residue. The esophagus below the level of the hypopharynx was not evaluated. Please see separate detailed report from speech pathology.
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
[2020-05-31] MEDS: Melatonin 3 MG TAB PO SCH (20:31)
[2020-05-31] MEDS: Acetaminophen/Codeine 30-300mg Tablet PO PRN (20:32)
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
[2020-06-01] MEDS: Acetaminophen/Codeine 30-300mg Tablet PO PRN (02:56)
[2020-06-01] MEDS: Acetaminophen 325 MG/10.15 ML UDCUP PO SCH ×3 (03:12→12:26)
[2020-06-01] MEDS: Enoxaparin Sodium 40 MG/0.4 ML SYRINGE SC SCH (09:36)
[2020-06-01] MEDS: Nystatin 500,000 UNITS/5 ML UDCUP SSP SCH ×2 (09:36→12:26)
[2020-06-01] MEDS: clonazePAM 0.5 MG TAB PO SCH (09:36)
[2020-06-01] MEDS: Famotidine 20 MG TAB PER TUBE SCH (09:36)
[2020-06-01] MEDS: Amantadine HCl 100 mg Capsule PO SCH (09:37)
[2020-06-01 16:12] VITALS: BP 113/68; TEMP 98.6
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
== END 2020-06-01 16:11 | disposition home or self-care (01) | DRG 3 ==
LOC: EDBD 17:43 → ERS 17:43 → SDC 20:14 → CCU 20:43 → IMCU/EMU 05-17 13:03 → SURG A 05-18 17:33
PROVIDERS: ADMIT Specialist; ATTEND Specialist
PROC: 5A1955Z Respiratory Ventilation, Greater than 96 Consecutive Hours (ICD-10-PCS; 2020-05-08)
PROC: 0QDG0ZZ Extraction of Right Tibia, Open Approach (ICD-10-PCS; 2020-05-08)
PROC: 2W6NX0Z Traction of Right Upper Leg using Traction Apparatus (ICD-10-PCS; 2020-05-08)
PROC: 0BH17EZ Insertion of Endotracheal Airway into Trachea, Via Natural or Artificial Opening (ICD-10-PCS; 2020-05-08)
PROC: 30233L1 Transfusion of Nonautologous Fresh Plasma into Peripheral Vein, Percutaneous Approach (ICD-10-PCS; 2020-05-08)
PROC: 30233N1 Transfusion of Nonautologous Red Blood Cells into Peripheral Vein, Percutaneous Approach (ICD-10-PCS; 2020-05-08)
PROC: 30233K1 Transfusion of Nonautologous Frozen Plasma into Peripheral Vein, Percutaneous Approach (ICD-10-PCS; 2020-05-08)
PROC: 0QHJ06Z Insertion of Intramedullary Internal Fixation Device into Right Fibula, Open Approach (ICD-10-PCS; 2020-05-09)
PROC: 0QHG06Z Insertion of Intramedullary Internal Fixation Device into Right Tibia, Open Approach (ICD-10-PCS; 2020-05-09)
PROC: 02HV33Z Insertion of Infusion Device into Superior Vena Cava, Percutaneous Approach (ICD-10-PCS; 2020-05-10)
PROC: B548ZZA Ultrasonography of Superior Vena Cava, Guidance (ICD-10-PCS; 2020-05-10)
PROC: 0B113F4 Bypass Trachea to Cutaneous with Tracheostomy Device, Percutaneous Approach (ICD-10-PCS; principal; 2020-05-11)
PROC: 0DH63UZ Insertion of Feeding Device into Stomach, Percutaneous Approach (ICD-10-PCS; 2020-05-25)
DX: S82.201B Unspecified fracture of shaft of right tibia, initial encounter for open fracture type I or II (principal); S06.5X9A Traumatic subdural hemorrhage with loss of consciousness of unspecified duration, initial encounter; R40.2122 Coma scale, eyes open, to pain, at arrival to emergency department; S72.361 Displaced segmental fracture of shaft of right femur; S06.6X9A Traumatic subarachnoid hemorrhage with loss of consciousness of unspecified duration, initial encounter; S72.101A Unspecified trochanteric fracture of right femur, initial encounter for closed fracture; S36.116A Major laceration of liver, initial encounter; R40.2212 Coma scale, best verbal response, none, at arrival to emergency department; J96.00 Acute respiratory failure, unspecified whether with hypoxia or hypercapnia; S27.332A Laceration of lung, bilateral, initial encounter; J69.0 Pneumonitis due to inhalation of food and vomit; S02.82XA Fracture of other specified skull and facial bones, left side, initial encounter for closed fracture; S02.81XA Fracture of other specified skull and facial bones, right side, initial encounter for closed fracture; S02.119A Unspecified fracture of occiput, initial encounter for closed fracture; D62 Acute posthemorrhagic anemia; S02.85XA Fracture of orbit, unspecified, initial encounter for closed fracture; S02.31XA Fracture of orbital floor, right side, initial encounter for closed fracture; E87.2 Acidosis; S27.321A Contusion of lung, unilateral, initial encounter; E87.0 Hyperosmolality and hypernatremia; E87.1 Hypo-osmolality and hyponatremia; B37.0 Candidal stomatitis; Z20.828 Contact with and (suspected) exposure to other viral communicable diseases; V29.49XA Motorcycle driver injured in collision with other motor vehicles in traffic accident, initial encounter; R40.2362 Coma scale, best motor response, obeys commands, at arrival to emergency department; G93.89 Other specified disorders of brain; T79.6XXA Traumatic ischemia of muscle, initial encounter; F12.929 Cannabis use, unspecified with intoxication, unspecified; F14.129 Cocaine abuse with intoxication, unspecified; E83.51 Hypocalcemia; B95.61 Methicillin susceptible Staphylococcus aureus infection as the cause of diseases classified elsewhere; E87.6 Hypokalemia; E83.42 Hypomagnesemia; D47.3 Essential (hemorrhagic) thrombocythemia; R13.12 Dysphagia, oropharyngeal phase; Z78.1 Physical restraint status
CPT/HCPCS: 31500; 36415; 36416; 36430; 37191; 51702; 70450; 70486; 70498; 71045; 71260; 72125; 72170; 74018; 74177; 74230; 76000; 76705; 76942; 80048; 80053; 80185; 80306; 80307; 81001; 82533; 82550; 82805; 83605; 83735; 83935; 84100; 84300; 85007; 85025; 85027; 85610; 85730; 86850; 86900; 86901; 87040; 87070; 87077; 87086; 87149; 87186; 87205; 87635; 90471; 90715; 93970; 94002; 94003; 94640; 94760; 96365; 96367; 96368; 96375; 96376; 99292; A4217; C1713; C1880; G0390; J0690; J0696; J1450; J1630; J1650; J1940; J1956; J2001; J2060; J2250; J2270; J2405; J2543; J2704; J3010; J3370; J3475; J3480; J3490; J7050; J7070; J7620; P9016; P9048; P9059; Q2009; Q9967; S0028; U0003